=== PATIENT | female | born 1990 | race American Indian/Alaskan Native ===

== ENCOUNTER 2018-06-21 08:46 | Emergency (ER) | payer MEDICAID ==
[2018-06-21 08:52] VITALS: BP 107/60
[2018-06-21 09:29] LABS: Basophils % (Auto) 0.8 % (0.0-1.8); Eosinophils % (Auto) 0.5 % (0.0-4.3); Hematocrit 42.5 % (30.3-42.9); Hemoglobin 14.4 gm/dl (10.1-14.3); Lymphocytes # (Auto) 1.3 K/mm3 (1.2-5.4); Mean Corpuscular HGB Conc 34 % (30-34); Mean Corpuscular Volume 90 fl (79-97); Monocytes # (Auto) 0.3 K/mm3 (0.0-0.8); Monocytes % (Auto) 5.4 % (0.0-7.3); Platelet Count 191 K/mm3 (140-440); Red Blood Count 4.71 M/mm3 (3.65-5.03); Red Cell Distribution Width 13.4 % (13.2-15.2)
[2018-06-21 09:31] LABS: Mucus,Urine FEW /HPF
[2018-06-21 09:46] LABS: Bilirubin,Urine NEG (Negative); Blood,Urine MOD (Negative); Color,Urine Yellow (Yellow); Protein,Urine <15 mg/dL mg/dL (Negative); Urobilinogen,Urine < 2.0 mg/dL (<2.0)
[2018-06-21 09:50] LABS: Alanine Aminotransferase < 5 units/L (7-56); Albumin 4.9 g/dL (3.9-5); BUN/Creatinine Ratio 17; Blood Urea Nitrogen 12 mg/dL (7-17); Calcium 9.2 mg/dL (8.4-10.2); Hemolysis Index 7
[2018-06-21] MEDS ORDERED: NACL 0.9% 1000 ML 1,000 ML IV ONE ×2 (10:53→10:57)
[2018-06-21] MEDS ORDERED: ZOFRAN ODT PO ONE (10:53)
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
== END 2018-06-21 11:15 | disposition home or self-care (01) ==
LOC: ED 08:46
DX: F32.9 Major depressive disorder, single episode, unspecified (principal); E86.0 Dehydration; F43.9 Reaction to severe stress, unspecified
CPT/HCPCS: 36415; 80053; 81001; 84703; 85025; 96360; 99283; J7030; Q0162

== ENCOUNTER 2019-03-01 22:37 | Emergency (ER) | payer MEDICAID | END 2019-03-02 | disposition left against medical advice (07) | LOC: ED 22:37 ==

== ENCOUNTER 2019-06-20 05:50 | Outpatient (CLI) | payer MEDICAID ==
[2019-06-20 06:44] LABS: Basophils % (Auto) 0.5 % (0.0-1.8); Eosinophils # (Auto) 0.1 K/mm3 (0.0-0.4); Hematocrit 31.6 % (30.3-42.9); Hemoglobin 11.3 gm/dl (10.1-14.3); Lymphocytes # (Auto) 1.5 K/mm3 (1.2-5.4); Lymphocytes % (Auto) 17.4 % (13.4-35.0); Mean Corpuscular HGB Conc 36 % (30-34); Mean Corpuscular Volume 89 fl (79-97); Monocytes # (Auto) 0.9 K/mm3 (0.0-0.8); Monocytes % (Auto) 10.7 % (0.0-7.3); Platelet Count 212 K/mm3 (140-440); Red Blood Count 3.54 M/mm3 (3.65-5.03)
[2019-06-20 07:05] LABS: Albumin 3.7 g/dL (3.9-5); BUN/Creatinine Ratio 10; Blood Urea Nitrogen 4 mg/dL (7-17); Calcium 8.9 mg/dL (8.4-10.2); Hemolysis Index 7
[2019-06-20 07:37] LABS: Alanine Aminotransferase < 5 units/L (7-56)
--- NOTE | 2019-06-20 07:55 | Ultrasound Report ---
ULTRASOUND OBSTETRIC LIMITED INDICATION / CLINICAL INFORMATION: fall. Clinical Gestational Age (GA): 27.5 weeks.days COMPARISON: None available. FINDINGS: HEART RATE (beats per minute): 147 AMNIOTIC FLUID INDEX (cm) = subjectively normal (normal = 7-24 cm) PRESENTATION: Breech. ADDITIONAL FINDINGS: Placenta is fundal and free of the os. Prominent multicystic dilatation of the u terine wall. IMPRESSION: 1. No acute sonographic abnormality of the intrauterine . 2. Prominent cystic dilatation of the uterine wall. Obstetric consultation and follow-up complete obs tetrical ultrasound is recommended. Signer Name: Jason Price MD Signed: 06/20/2019 7:51 AM Workstation Name: [id number]
[2019-06-20] MEDS ORDERED: LACTATED RINGERS 500 ML IV ONE (10:00)
== END 2019-06-20 10:00 | disposition home or self-care (01) ==
LOC: TRG 05:50
PROVIDERS: ATTEND Obstetrics & Gynecology
DX: O47.02 False labor before 37 completed weeks of gestation, second trimester (principal); Z3A.27 27 weeks gestation of pregnancy
CPT/HCPCS: 36415; 59025; 76815; 80053; 85025; 85460